=== PATIENT | female | born 1965 | race Hispanic/Latino ===

== ENCOUNTER 2018-05-15 19:34 | Emergency (ER) | payer BC ==
[~2018-05-15] VITALS: Ht 167.6 cm; Wt 91.2 kg
[2018-05-15] MEDS ORDERED: ONDANSETRON HCL 4 MG ORAL DISINTEGRATING TAB PO ONE (19:45)
[2018-05-15 21:45] VITALS: BP 135/95
== END 2018-05-15 22:18 | disposition home or self-care (01) ==
LOC: ER 19:34
DX: R51 Headache (principal); J01.00 Acute maxillary sinusitis, unspecified; J01.10 Acute frontal sinusitis, unspecified
CPT/HCPCS: 99282; Q0162

== ENCOUNTER 2018-05-20 17:11 | Emergency (ER) | payer BC ==
[~2018-05-20] VITALS: Ht 167.6 cm; Wt 91.2 kg
== END 2018-05-20 18:45 | disposition left against medical advice (07) ==
LOC: ER 17:11
DX: R51 Headache (principal)

== ENCOUNTER → 2023-04-21 | Outpatient (REF) | payer BC | LOC: MAMMO 13:45 | PROVIDERS: ATTEND Family Medicine | DX: Z12.31 Encounter for screening mammogram for malignant neoplasm of breast (principal); Z13.820 Encounter for screening for osteoporosis | CPT/HCPCS: 77067; 77080 ==